=== PATIENT | male | born 1980 | race Caucasian/White ===

== ENCOUNTER 2016-11-03 11:19 | Emergency (ER) | payer OTHER ==
[2013-12-05 05:58] VITALS: BMI 25.9
[~2016-11-03 11:19] MED LIST: CYCLOBENZAPRINE10 MG PO; HYDROCODONE-APA1 TAB PO
== END 2016-11-03 14:00 | disposition home or self-care (01) ==
LOC: D.ER 11:19
DX: S43.401A Unspecified sprain of right shoulder joint, initial encounter (principal); X50.0XXA Overexertion from strenuous movement or load, initial encounter; Y93.89 Activity, other specified; Y92.019 Unspecified place in single-family (private) house as the place of occurrence of the external cause

== ENCOUNTER 2016-11-04 10:25 | Emergency (ER) | payer OTHER ==
[2013-12-05 05:58] VITALS: BMI 25.9
== END 2016-11-04 11:12 | disposition home or self-care (01) ==
LOC: D.ER 10:25
DX: M25.511 Pain in right shoulder (principal); M62.838 Other muscle spasm